=== PATIENT | female | born 1990 | race African-American/Black ===

== ENCOUNTER 2022-05-22 17:38 | Emergency (ER) | payer OTHER ==
[2022-05-22 18:19] LABS: #Eosinphils 0.2 thou/uL (0.0-0.7); #Lymphocytes 1.9 thou/uL (1.20-3.40); #Monocytes 0.4 thou/uL (0.11-0.59); #Neutrophils 1.9 thou/uL (1.40-6.50); %Basophils 0.8 % (0.0-1.0); %Eosinophils 3.8 % (0.0-10.0); %Lymphocytes 42.7 % (21.0-51.0); %Monocytes 9.8 % (0.0-10.0); %Neutrophils 42.8 % (42.0-75.0); Hemoglobin 13.1 g/dL (12.0-16.0); Mean Corpuscular HGB CONC 33.1 g/dL (32.0-36.0); Mean Corpuscular Hemoglobin 30.5 pg (27.0-31.0); Mean Corpuscular Volume 92.3 fl (78.0-98.0); Mean Platelet Volume 8.3 fL (7.4-10.4); Platelet Count 273 10x3/uL (130-400); RBC Distribution Width 12.9 % (11.5-14.5); Red Blood Cell (RBC) Count 4.31 mill/uL (4.20-5.40); White Blood Cell (WBC) Count 4.4 10x3/uL (4.8-10.8)
[2022-05-22 18:44] LABS: ALT (SGPT) 36 U/L (8-55); AST (SGOT) 28 U/L (5-34); Alkaline Phosphatase 77 U/L (40-110); Anion Gap 12 mmol/L (10-20); BUN (Urea Nitrogen) 9 mg/dL (7.0-18.7); Bilirubin, Total 0.3 mg/dL (0.2-1.2); Calc. Creatinine Clearance 0 mL/min (70-130); Calcium 9.4 mg/dL (7.8-10.44); Carbon Dioxide 26 mmol/L (22-29); Chloride 103 mmol/L (98-107); Estimated GFR 123; Glucose 97 mg/dL (70-105); Potassium 4.1 mmol/L (3.5-5.1); Sodium 137 mmol/L (136-145)
[2022-05-22] MEDS ORDERED: Ondansetron PF 4 MG/2 ML Vial ONE (18:45)
[2022-05-22] MEDS ORDERED: Acetaminophen 500 MG TAB ONE (18:45)
[2022-05-22 19:10] LABS: CK (CPK) 79 U/L (29-168); Lipase 20 U/L (8-78); Magnesium 1.7 mg/dL (1.6-2.6); Phosphorus 4.3 mg/dL (2.3-4.7)
[2022-05-22 19:27] LABS: Pregnancy Test - Urine (BHCG) Negative (Negative); Pregu Control Background? CLEAR/WHITE (CLR/WHITE); Pregu Control Bar Appear? YES (CONTROL BAR); Specific Gravity 1.019 (1.002-1.036)
[2022-05-22 19:32] LABS: Amphetamine Not Detected (NotDetected); Barbiturates Screen Not Detected (NotDetected); Benzodiazepine Screen Detected (NotDetected); Cocaine Metabolite Screen Not Detected (NotDetected); Methadone Not Detected (NotDetected); Methamphetamine Not Detected (NotDetected); Opiate Screen Detected (NotDetected); Oxycodone Screen Not Detected (NotDetected); Phencyclidine (PCP) Not Detected (NotDetected); THC/Cannabinoid Screen Not Detected (NotDetected); Tricyclic Screen Not Detected (NotDetected)
== END 2022-05-22 20:41 | disposition home or self-care (01) ==
LOC: ERS 17:38
DX: R07.2 Precordial pain (principal); R56.9 Unspecified convulsions; Z79.899 Other long term (current) drug therapy
CPT/HCPCS: 36415; 70450; 71045; 80053; 80306; 81025; 83690; 83735; 84100; 84443; 84484; 85025; 93005; 94760; 96374; J2405

== ENCOUNTER 2022-12-04 16:29 | Emergency (ER) | payer OTHER ==
[~2022-12-04 16:29] MED LIST: Iopamidol-370 76% 500 ML MDV (1 ML CHARGE) ONE
[2022-12-04] MEDS ORDERED: Ketorolac Tromethamine 30 MG/ML VIAL ONE (16:55)
[2022-12-04] MEDS ORDERED: Ondansetron PF 4 MG/2 ML Vial ONE ×2 (16:55→17:56)
[2022-12-04 17:26] LABS: #Eosinphils 0.4 thou/uL (0.0-0.7); #Monocytes 0.5 thou/uL (0.11-0.59); #Neutrophils 5.5 thou/uL (1.40-6.50); %Basophils 0.5 % (0.0-1.0); %Eosinophils 4.4 % (0.0-10.0); %Lymphocytes 26.2 % (21.0-51.0); %Neutrophils 62.6 % (42.0-75.0); Hemoglobin 12.4 g/dL (12.0-16.0); Mean Corpuscular HGB CONC 33.8 g/dL (32.0-36.0); Mean Corpuscular Hemoglobin 29.3 pg (27.0-31.0); Mean Corpuscular Volume 86.8 fl (78.0-98.0); Mean Platelet Volume 9.9 fL (7.4-10.4); Platelet Count 263 10x3/uL (130-400); RBC Distribution Width 14.2 % (11.5-14.5); Red Blood Cell (RBC) Count 4.23 mill/uL (4.20-5.40); White Blood Cell (WBC) Count 8.7 10x3/uL (4.8-10.8)
[2022-12-04 17:40] LABS: BHCG - Serum Negative (NEGATIVE); Pregs Control Background? CLEAR/WHITE (CLR/WHITE); Pregs Control Bar Appear? YES (CONTROL BAR)
[2022-12-04 17:45] LABS: ALT (SGPT) 14 U/L (8-55); AST (SGOT) 15 U/L (5-34); Albumin 4.4 g/dL (3.5-5.0); Alkaline Phosphatase 72 U/L (40-110); Anion Gap 12 mmol/L (10-20); BUN (Urea Nitrogen) 5 mg/dL (7.0-18.7); Bilirubin, Total 0.3 mg/dL (0.2-1.2); Calc. Creatinine Clearance 0 mL/min (70-130); Calcium 9.7 mg/dL (7.8-10.44); Carbon Dioxide 29 mmol/L (22-29); Chloride 101 mmol/L (98-107); Estimated GFR 115; Globulin 2.8 g/dL (2.4-3.5); Glucose 85 mg/dL (70-105); Lipase 8 U/L (8-78); Potassium 3.6 mmol/L (3.5-5.1); Protein, Total 7.2 g/dL (6.0-8.3); Sodium 138 mmol/L (136-145)
[2022-12-04] MEDS ORDERED: Morphine 4 MG/ML VIAL ONE (17:56)
[2022-12-04] MEDS ORDERED: Morphine 10 MG/ML VIAL ONE (19:42)
== END 2022-12-04 20:53 | disposition home or self-care (01) ==
LOC: ERS 16:29
DX: K95.09 Other complications of gastric band procedure (principal)
CPT/HCPCS: 74177; 80053; 83690; 84703; 85025; 96374; 96375; 96376; J1885; J2270; J2405; Q9967